=== PATIENT | female | born 1975 | race American Indian/Alaskan Native ===

== ENCOUNTER 2020-11-02 17:58 | Emergency (ER) | payer OTHER ==
--- NOTE | 2020-11-02 18:59 | CR ---
HISTORY: Fall. TECHNIQUE: Two views of the right humerus. COMPARISON: No prior. FINDINGS: No acute right humeral fracture. Elbow joint space maintained. Right glenohumeral joint maintained. IMPRESSION: No acute fracture. Dictated by Anthony Contreras MD @ Nov 02 2020 6:54PM Signed by Dr. Anthony Contreras @ Nov 02 2020 6:58PM
--- NOTE | 2020-11-02 18:59 | CR ---
HISTORY: Fall. TECHNIQUE: Two views of the right forearm. COMPARISON: No prior. FINDINGS: No acute radial or ulnar fracture. No malalignment. Wrist joint spaces maintained. No elbow joint effusion. IMPRESSION: No acute fracture or malalignment. Dictated by Anthony Contreras MD @ Nov 02 2020 6:54PM Signed by Dr. Anthony Contreras @ Nov 02 2020 6:56PM
--- NOTE | 2020-11-02 19:17 | EDM.PDOC ---
ED HPI GENERAL MEDICAL PROBLEM - General Chief Complaint: Upper Extremity Injury/Pain Stated Complaint: RT ARM INJURY Time Seen by Provider: 11/02/20 19:09 Source of Information: Reports: Patient History Limitations: Reports: No Limitations - History of Present Illness INITIAL COMMENTS - FREE TEXT/NARRATIVE: HISTORY AND PHYSICAL: History of present illness: Patient is a 45 year old female who presents to the ED today with concern of right forearm injury. Patient states that she started to fall after tripping on the stair and hit her right forearm on the side of the wall. Patient denies any head injury or loss of consciousness. Patient states that she has been able to move her arm but does have pain with doing so. Patient denies any other associated symptoms. Patient denies fever, chills, chest pain, shortness of breath, or cough. Denies headache, neck stiff ness, change in vision, syncope, or near syncope. Denies nausea, vomiting, abdominal pain, diarrhea, constipation, or dysuria. Has not noted any blood in urine or stool. Patient has been eating and drinking appropriately. Review of systems: As per history of present illness and below otherwise all systems reviewed and negative. Past medical history: As per history of present illness and as reviewed below otherwise noncontributory. Surgical history: As per history of present illness and as reviewed below otherwise noncontributory. Social history: See social history for further information Family history: As per history of present illness and as reviewed below otherwise noncontributory. Physical exam: General: Patient is alert, oriented, and in no acute distress. Patient sitting comfortably on exam table. Vitals stable and reviewed by me. HEENT: Atraumatic, normocephalic, pupils equal and reactive bilaterally, negative for conjunctival pallor or scleral icterus, mucous membranes moist, TMs normal bilaterally, throat clear, neck supple, nontender, trachea midline. No drooling or trismus noted. No meningeal signs. No hot potato voice noted. Lungs: Clear to auscultation, breath sounds equal bilaterally, chest nontender. Heart: S1S2, regular rate and rhythm without overt murmur Abdomen: Soft, nondistended, nontender. Negative for masses or hepatosplenomegaly. Negative for costovertebral tenderness. Pelvis: Stable nontender. Genitourinary: Deferred. Rectal: Deferred. Skin: Intact, warm, dry. No lesions or rashes noted. Extremities: No obvious deformity of the right upper extremity. Patient does have pain with palpation of the mid forearm without obvious deformity, ecchym osis, or erythema noted. Patient has full range of motion of the complete right upper extremity without pain or difficulty. Radial pulses grossly intact of the right upper extremity with capillary refill less than 2 seconds. Otherwise, atraumatic, negative for cords or calf pain. Neurovascular unremarkable. Neuro: Awake, alert, oriented. Cranial nerves II through XII unremarkable. Cerebellum unremarkable. Motor and sensory unremarkable throughout. Exam nonfocal. Notes: Signs and symptoms that would prompt return to the emergency room thoroughly discussed with patient. Discussed the importance for follow up with an orthopedic provider. Voices understanding and is agreeable to plan of care. Denies any further questions or concerns at this time. Diagnostics: Forearm XR/Humerus XR RT Therapeutics: Forearm splint, shoulder sling Prescription: Diclofenac Impression: Right forearm injury Plan: 1. Rest, ice, elevate the affected extremity. You can apply ice 15 minutes on, 15 minutes off. 2. Tylenol as directed for pain management or discomfort. Take medication as prescribed. Do not take with any additional NSAIDs such as aspirin, ibuprofen, naproxen with prescribed medication. 3. Follow up with the primary care provider as discussed. Return to the ED as needed and as discussed. Definitive disposition and diagnosis as appropriate pending reevaluation and review of above. right ahnd Pain Score (Numeric/FACES): 10 - Related Data Allergies Allergy/AdvReac Type Severity Reaction Status Date / Time No Known Allergies Allergy Verified 11/02/20 19:28 Home Meds: Home Meds Diclofenac Sodium [Voltaren] 75 mg PO BIDMEALS PRN #15 tab.cr 11/02/20 [Rx] Review of Systems - Review of Systems Review Of Systems: Comprehensive ROS is negative, except as noted in HPI. ED EXAM, GENERAL - Physical Exam Exam: See Below (See dictation) Course - Vital Signs Last Recorded V/S: Last Vital Signs Temp 97.3 F 11/02/20 19:25 Pulse 87 11/02/20 19:25 Resp 16 11/02/20 19:25 BP 134/97 H 11/02/20 19:25 Pulse Ox 97 11/02/20 19:25 Departure - Departure Time of Disposition: 19:17 Disposition: Home, Self-Care 01 Clinical Impression: Forearm injury Qualifiers: Encounter type: initial encounter Laterality: right Qualified Code(s): S59.911A - Unspecified injury of right forearm, initial encounter - Discharge Information Prescriptions: Diclofenac Sodium [Voltaren] 75 mg PO BIDMEALS PRN #15 tab.cr PRN Reason: Pain Instructions: Hand Pain Referrals: Adina Marr MD [Primary Care Provider] - Forms: ED Department Discharge Additional Instructions: The following information is given to patients seen in the emergency department who are being discharged to home. This information is to outline your options for follow-up care. We provide all patients seen in our emergency department with a follow-up referral. The need for follow-up, as well as the timing and circumstances, are variable depending upon the specifics of your emergency department visit. If you don't have a primary care physician on staff, we will provide you with a referral. We always advise you to contact your personal physician following an e mergency department visit to inform them of the circumstance of the visit and for follow-up with them and/or the need for any referrals to a consulting specialist. The emergency department will also refer you to a specialist when appropriate. This referral assures that you have the opportunity for follow-up care with a specialist. All of these measure are taken in an effort to provide you with op timal care, which includes your follow-up. Under all circumstances we always encourage you to contact your private physician who remains a resource for coordinating your care. When calling for follow-up care, please make the office aware that this follow-up is from your recent emergency room visit. If for any reason you are refused follow-up, please contact the [facility] Emergency Department at and asked to speak to the emergency department charge nurse. [facility] [address] [place] [id number] [facility] [address] [place] [id number] 1. Rest, ice, elevate the affected extremity. You can apply ice 15 minutes on, 15 minutes off. 2. Tylenol as directed for pain management or discomfort. Take medication as prescribed. Do not take with any additional NSAIDs such as aspirin, ibuprofen, naproxen with prescribed medication. 3. Follow up with the primary care provider as discussed. Return to the ED as needed and as discussed.
== END 2020-11-02 19:37 | disposition home or self-care (01) ==
LOC: MW.ED 17:58
DX: S59.911A Unspecified injury of right forearm, initial encounter (principal); W01.190A Fall on same level from slipping, tripping and stumbling with subsequent striking against furniture, initial encounter
CPT/HCPCS: 29125; 73060-26-RT; 73060-RT; 73090-26-RT; 73090-RT; 99283